=== PATIENT | male | born 1940 | race Caucasian/White ===

== ENCOUNTER 2025-02-23 12:56 | Inpatient (IN) | payer MEDICARE, OTHER ==
[~2025-02-23] VITALS: Ht 167.6 cm; Wt 65.9 kg
[~2025-02-23 12:56] MED LIST: AMLO-258 PO; CARV12 PO; PANT-31 PO
[2025-02-23 15:28] LABS: HEMATOCRIT 26.4 % (41-53); HEMOGLOBIN 8.3 g/dL (13.5-17.5); MEAN CORPUSCULAR HEMOGLOBIN 25.6 pg (26.0-34.0); MEAN CORPUSCULAR HGB CONC 31.4 G/dL (31.0-37.0); MEAN CORPUSCULAR VOLUME 82 fL (80-100); PLATELET COUNT (AUTO) 625 K/uL (150-450); RED BLOOD CELL COUNT(AUTO) 3.23 MIL/uL (4.50-5.90); WHITE BLOOD COUNT (AUTO) 10.4 K/uL (4.5-11.0)
[2025-02-23 15:38] LABS: ANION GAP 6 mmol/L (8-16); CALCIUM, TOTAL 8.3 mg/dL (8.8-10.5); CARBON DIOXIDE 30 mmol/L (22-29); CHLORIDE 100 mmol/L (98-107); CREATININE 5.57 mg/dL (0.60-1.30); GLOMERULAR FILTR. RATE CALC 10 mL/min (>60); GLUCOSE,RANDOM 137 mg/dL (70-110); POTASSIUM 5.9 mmol/L (3.5-5.1); SODIUM SERUM 135 mmol/L (136-145); UREA NITROGEN, BLOOD 69 mg/dL (7-18)
[2025-02-23 15:45] LABS: LIPASE 30 U/L (16-77); TROPONIN I-HIGH SENSITIVITY 15 ng/L (<76)
[2025-02-23 15:48] LABS: LACTIC ACID 1.3 mmol/L (0.4-2.0)
[2025-02-23 15:51] LABS: BAND NEUTROPHILS % (MANUAL) 0 % (0-5)
[2025-02-23] MEDS ORDERED: INSU100I47 SQ (15:54)
[2025-02-23] MEDS ORDERED: FLUT1AER IH (15:54)
[2025-02-23] MEDS ORDERED: HYDR25TA84 PO (15:54)
[2025-02-23] MEDS ORDERED: HYDR25TA PO (15:54)
[2025-02-23] MEDS ORDERED: FOLI-130 PO (15:54)
[2025-02-23] MEDS ORDERED: AMIO200 PO (15:54)
[2025-02-23] MEDS ORDERED: LACT10SO9 PO (15:54)
[2025-02-23] MEDS ORDERED: RIFAX550 PO (15:54)
[2025-02-23] MEDS ORDERED: LANS-78 PO (15:54)
[2025-02-23 15:55] LABS: BASOPHILS % (MANUAL) 2 % (0-2); LYMPHOCYTES % (MANUAL) 7 % (22-44); MONOCYTES % (MANUAL) 6 % (2-9); SEGMENTED NEUTROPHILS % 85 % (40-70); TOTAL CELLS COUNTED 100
[2025-02-23 15:58] LABS: B-TYPE NATRIURETIC PEPTIDE 3490 pg/mL (0-100)
[2025-02-23] MEDS: QUEtiapine FUMARATE 100 MG TABLET PO ONE (15:58)
[2025-02-23] MEDS: ACETAMINOPHEN 500 MG TABLET PO ONE (15:59)
[2025-02-23 16:01] LABS: RBC MORPHOLOGY COMMENT ABNORMAL RBC MORPH
[2025-02-23] MEDS: LACTULOSE 20 GM/30 ML SOLUTION UDCUP PO ONE (16:14)
[2025-02-23] MEDS: SODIUM ZIRCONIUM CYCLOSILICATE 10 GM POWDER PACKET PO ONE (17:26)
[2025-02-23] MEDS: LORazepam 1 MG TABLET PO ONE (17:26)
[2025-02-23] MEDS: SODIUM BICARBONATE [ADULT] 8.4% 50 MEQ/50 ML SYRINGE IVP ONE (17:29)
[2025-02-23] MEDS ORDERED: HEPA500018 SQ (18:41)
[2025-02-23] MEDS ORDERED: THIA100T80 PO (18:58)
[2025-02-23] MEDS ORDERED: CHOL200059 PO (18:58)
[2025-02-23] MEDS ORDERED: DOCU50LI40 PO (18:58)
[2025-02-23] MEDS ORDERED: MELA5TAB40 PO (18:58)
[2025-02-23] MEDS ORDERED: ACET-2247 PO (18:58)
[2025-02-23] MEDS ORDERED: SENN-376 PO (18:58)
[2025-02-23] MEDS ORDERED: VITA-328 PO (18:58)
[2025-02-23] MEDS ORDERED: FERR-82 PO (18:58)
[2025-02-23] MEDS ORDERED: IPRA0.2S49 NEB (18:58)
[2025-02-23] MEDS ORDERED: MAGN-169 PO (18:58)
[2025-02-23] MEDS ORDERED: ALBU2.5V39 NEB (18:58)
[2025-02-23] MEDS ORDERED: LACT10SO85 PO (18:58)
[2025-02-23] MEDS ORDERED: IPRATROPIUM BROMIDE 0.5 MG/2.5 ML NEB SOLUTION NEB PRN (19:00)
[2025-02-23] MEDS ORDERED: ALBUTEROL SULFATE 2.5 MG/0.5 ML NEB SOLUTION NEB PRN (19:00)
[2025-02-23] MEDS ORDERED: ZOLPIDEM TARTRATE 5 MG TABLET PO PRN (19:00)
[2025-02-23] MEDS ORDERED: MAGNESIUM HYDROXIDE SUSPENSION 30 ML UDCUP PO PRN (19:00)
[2025-02-23] MEDS ORDERED: BISACODYL 10 MG RECTAL RECTAL SUPPOSITORY PR PRN (19:00)
[2025-02-23] MEDS ORDERED: ONDANSETRON HCL 4 MG/2 ML VIAL IVP PRN (19:00)
[2025-02-23] MEDS ORDERED: ACETAMINOPHEN 325 MG TABLET PO PRN (19:00)
[2025-02-23] MEDS ORDERED: MORPHINE SULFATE 2 MG/ML SYRINGE IVP PRN (19:00)
[2025-02-23] MEDS ORDERED: IPRA3AMP24 NEB (19:03)
[2025-02-24] VITALS (8 sets, daily range): BP systolic 127–162; BP diastolic 50–93; PULSE 60–79; RESP 18–19; TEMP 97.7–98.2; O2SAT 94–100
[2025-02-24] MEDS: HEPARIN SODIUM,PORCINE 5,000 UNITS/ML VIAL SQ SCH
[2025-02-24 07:28] LABS: HEMATOCRIT 25.4 % (41-53); HEMOGLOBIN 8.1 g/dL (13.5-17.5); MEAN CORPUSCULAR HEMOGLOBIN 25.7 pg (26.0-34.0); MEAN CORPUSCULAR HGB CONC 31.7 G/dL (31.0-37.0); MEAN CORPUSCULAR VOLUME 81 fL (80-100); PLATELET COUNT (AUTO) 643 K/uL (150-450); RED BLOOD CELL COUNT(AUTO) 3.14 MIL/uL (4.50-5.90); RED CELL DISTRIBUTION WIDTH 21.6 % (11.5-14.5); WHITE BLOOD COUNT (AUTO) 7.9 K/uL (4.5-11.0)
[2025-02-24 07:46] LABS: ALBUMIN 0.7 g/dL (3.4-5.0); ALKALINE PHOSPHATASE 154 U/L (46-116); ANION GAP 6 mmol/L (8-16); ASPARTATE AMINOTRANSFERASE 20 U/L (15-37); BILIRUBIN,TOTAL 0.5 mg/dL (0.1-1.0); CALCIUM, TOTAL 8.3 mg/dL (8.8-10.5); CARBON DIOXIDE 28 mmol/L (22-29); CHLORIDE 104 mmol/L (98-107); CREATININE 5.64 mg/dL (0.60-1.30); GLOMERULAR FILTR. RATE CALC 10 mL/min (>60); GLUCOSE,RANDOM 79 mg/dL (70-110); POTASSIUM 4.9 mmol/L (3.5-5.1); SODIUM SERUM 138 mmol/L (136-145); TOTAL PROTEIN, SERUM 6.2 g/dL (6.4-8.2); UREA NITROGEN, BLOOD 68 mg/dL (7-18)
[2025-02-24 08:00] LABS: ALANINE AMINOTRANSFERASE < 6 U/L (12-78)
[2025-02-24] MEDS: PANTOPRAZOLE SODIUM 40 MG DR TABLET PO SCH (08:33)
[2025-02-24 11:45] LABS: BAND NEUTROPHILS % (MANUAL) 2 % (0-5); LYMPHOCYTES % (MANUAL) 32 % (22-44); MONOCYTES % (MANUAL) 2 % (2-9); RBC MORPHOLOGY COMMENT NORMAL RBC MORPH; SEGMENTED NEUTROPHILS % 64 % (40-70); TOTAL CELLS COUNTED 100
[2025-02-24] MEDS: FOLIC ACID/VIT B COMPLEX AND C TABLET PO SCH (13:15)
[2025-02-24] MEDS: CALCITRIOL 0.25 MCG CAPSULE PO SCH (13:15)
[2025-02-24] MEDS: SOD FERRIC GLUC COMPLX/SUCROSE 125 MG in SODIUM CHLORIDE 0.9% 100 ML IV SCH (14:00)
[2025-02-24] MEDS: LACTULOSE 20 GM/30 ML SOLUTION UDCUP PO SCH (16:00)
[2025-02-24] MEDS: HYDROCODONE/ACETAMINOPHEN 5-325 MG TABLET PO PRN (20:53)
[2025-02-25 04:19] VITALS: BP 138/53; PULSE 78; RESP 18; TEMP 98.1; O2SAT 98
[2025-02-25 08:30] VITALS: BP 136/56; PULSE 61; RESP 19; TEMP 98; O2SAT 99
[2025-02-25] MEDS: EPOETIN ALFA 10,000 UNITS/ML 2 ML VIAL SQ SCH (09:00)
[2025-02-25] MEDS: BUMETANIDE 0.25 MG/ML 4 ML VIAL IVP SCH (11:15)
== END 2025-02-26 18:20 | DRG 640 ==
LOC: EMS 12:57 → EDH 18:49 → 5S 02-24 00:10
PROVIDERS: ADMIT Hospitalist; ATTEND Hospitalist
PROC: GZ56ZZZ Individual Psychotherapy, Supportive (ICD-10-PCS; principal; 2025-02-24)
DX: E87.5 Hyperkalemia (principal); N18.6 End stage renal disease; R53.2 Functional quadriplegia; I13.2 Hypertensive heart and chronic kidney disease with heart failure and with stage 5 chronic kidney disease, or end stage renal disease; E46 Unspecified protein-calorie malnutrition; F01.53 Vascular dementia, unspecified severity, with mood disturbance; K76.6 Portal hypertension; N25.81 Secondary hyperparathyroidism of renal origin; I50.32 Chronic diastolic (congestive) heart failure; K76.82 Hepatic encephalopathy; E11.22 Type 2 diabetes mellitus with diabetic chronic kidney disease; D63.1 Anemia in chronic kidney disease; I48.91 Unspecified atrial fibrillation; K70.30 Alcoholic cirrhosis of liver without ascites; F31.9 Bipolar disorder, unspecified; I27.20 Pulmonary hypertension, unspecified; R62.7 Adult failure to thrive; J44.9 Chronic obstructive pulmonary disease, unspecified; N25.0 Renal osteodystrophy; Z68.23 Body mass index [BMI] 23.0-23.9, adult; Z91.158 Patient's noncompliance with renal dialysis for other reason; I25.2 Old myocardial infarction; Z82.49 Family history of ischemic heart disease and other diseases of the circulatory system; Z83.3 Family history of diabetes mellitus; Z87.891 Personal history of nicotine dependence; Z99.2 Dependence on renal dialysis; Z79.899 Other long term (current) drug therapy
CPT/HCPCS: 71045; 80048; 80053; 82140; 83605; 83690; 83880; 84484; 85025; 87040; 87081; 93005; 97163; 97530; 99285; G0378; J0885; J1644; J2916; J3490; J7050; 36415-L1; 36415-TC